=== PATIENT | male | born 1995 | race Caucasian/White ===

== ENCOUNTER 2016-12-07 09:29 | Emergency (ER) | payer BC, OTHER ==
[~2016-12-07] VITALS: Ht 190.5 cm; Wt 127.0 kg
[2016-12-07 09:32] VITALS: Ht 190.5 cm; Wt 127.0 kg
[2016-12-07] MEDS ORDERED: PRED20TA PO (09:55)
[2016-12-07] MEDS ORDERED: PEN500 PO (09:55)
[2016-12-07] MEDS ORDERED: IBUP800T25 PO (09:55)
[2016-12-07] MEDS ORDERED: predniSONE 20 MG TAB PO ONE (10:00)
[2016-12-07] MEDS ORDERED: PENICILLIN G BENZ 1.2 MIL UNIT SYG IM ONE (10:00)
[2016-12-07] MEDS ORDERED: IBUPROFEN 800 MG TAB PO ONE (10:00)
--- NOTE | 2016-12-07 10:40 | ERD ---
DATE OF SERVICE: HISTORY OF PRESENT ILLNESS: The patient is a 31-year-old male complaining of body aches, fever, sor e throat. He denies cough, denies runny nose. Denies vomiting, denies chest pain, shortness of kevin ath, been taking Thera-Flu and ibuprofen, last dose was last night. No sick contacts, no abdominal pain. PAST MEDICAL HISTORY: Denies medical problems. ALLERGIES TO MEDICATIONS: Denies. SURGERIES, HOSPITALIZATIONS: Denies. REVIEW OF SYSTEMS: A 12-point review of systems was done. Refer to HPI for positives, all other sy stems negative. PHYSICAL EXAMINATION VITAL SIGNS: Temperature is 102.3, pulse 101, blood pressure is 142/86, respiratory 18, O2 saturati on 99% on room air. Pain intensity 8/10. GENERAL: The patient is well-appearing, well-nourished, no acute distress. HEENT: The patient has erythema and exudate noted to bilateral tonsils with uvula midline. Positiv e cervical lymphadenopathy. TMs are within normal limits. Pupils equal round and react to light. Extraocular movements intact. CHEST: Clear to auscultation bilaterally. There are no rales, wheezes or rhonchi. HEART: Regular rate and rhythm. No murmurs, clicks, rubs or gallops. No S3 or S4. DIAGNOSES 1. Fever. 2. Presumed strep. EMERGENCY ROOM COURSE: The patient was given IM penicillin, oral prednisone and oral ibuprofen and told to follow up with his primary care. MEDICAL DECISION MAKING: Patient's exam is concerning for strep. He is given mono precautions. I have low suspicion for peritonsillar or retropharyngeal abscess. Low suspicion for deep abscess for mation or sepsis, low suspicion for pneumonia, low suspicion for meningitis. DISCHARGE: The patient is discharged stable. Patient was given a prescription for penicillin, pred nisone and ibuprofen and told to follow up with primary care within 1 to 2 days for reevaluation. P atient told if symptoms progress or worsen to return to the ER. All other questions answered at ghulam e of discharge. Discharge summary given at the time of departure. Patient understood and complied with plan. Dictated By: KEKE BRYAN for MATTHEW BHARDWAJ/MIKA Conf#: [id number] DID#: [id number]
== END 2016-12-07 10:52 | disposition home or self-care (01) ==
LOC: FTE 09:29
DX: R50.9 Fever, unspecified (principal)
CPT/HCPCS: 96372; 99284; J0561; J7512